=== PATIENT | male | born 1990 | race African-American/Black ===

== ENCOUNTER 2018-05-01 20:47 | Emergency (ER) | payer SELFPAY ==
[~2018-05-01] VITALS: Ht 177.8 cm; Wt 59.0 kg
[2018-05-01 20:50] VITALS: BP 134/73
--- NOTE | 2018-05-01 21:05 | Emergency Room Report ---
History of Present Illness General Chief Complaint: Substance Abuse Source: Patient Present Illness HPI Patient is a 27-year-old male brought in by EMS after reported smoking marijuana and using crystal meth. Patient states that he had been using this earlier in the day. He denies any current suicidal thoughts. He states that he had been staying at a nursing home. The patient denies any current chest pain or shortness of breath. Allergies: Coded Allergies: No Known Allergies (Unverified , 05/01/18) Patient History Past Medical History: see triage record Reviewed Nursing Documentation: PMH: Agreed; PSxH: Agreed Nursing Documentation-PMH History Of Psychiatric Problem: Yes Review of Systems All Other Systems: negative except mentioned in HPI Physical Exam Vital Signs Date Time Temp Pulse Resp B/P (MAP) Pulse Ox O2 Delivery O2 Flow Rate FiO2 05/01/18 20:43 98.3 100 17 134/73 100 Room Air 98.2 Sp02 EP Interpretation: reviewed, normal General Appearance: alert/responsive, no apparent distress, GCS 15, non-toxic Head: atraumatic Eyes: PERRL, EOMI, lids + conjunctiva normal ENT: normal ENT inspection, TMs + canals normal, hearing intact, no angioedema Neck: supple/symm/no masses, no meningismus Respiratory: effort normal, no wheezing, chest symmetrical Cardiovascular: regular rate, rhythm, no edema Cardiovascular #2: 2+ carotid (R), 2+ carotid (L), 2+ dorsalis pedis (R), 2+ dorsalis pedis (L) Gastrointestinal: non-tender, no mass, non-distended, no rebound/guarding, normal bowel sounds Musculoskeletal: gait & station normal, strength & tone normal, normal ROM, non -tender Neurologic: normal inspection, CN II-XII intact, oriented x3, sensory intact, normal speech Psychiatric: other - flat affect Skin: no rash, well hydrated Lymphatic: normal inspection Medical Decision Making Diagnostic Impression: Primary Impression: Substance abuse ER Course The patient presented for agitation. Differential diagnosis included was not limited to psychosis, substance abuse, alcohol intoxication among others. Patient has a benign exam and does not appear to require any further imaging or laboratory testing at this time. The patient admits to using methamphetamine as well as marijuana. The patient denies any suicidal thoughts. The patient does not appear to be any danger to himself. The patient was observed in the emergency department. Patient does not appear to be responding to internal stimuli. Patient subsequently eloped without notifying staff. Labs Test 05/01/18 21:00 Urine Opiates Screen Negative (NEGATIVE) Urine Barbiturates Screen Negative (NEGATIVE) Phencyclidine (PCP) Screen Negative (NEGATIVE) Urine Amphetamines Screen Negative (NEGATIVE) Urine Benzodiazepines Screen Negative (NEGATIVE) Urine Cocaine Screen Negative (NEGATIVE) Urine Marijuana (THC) Screen Negative (NEGATIVE) Last Vital Signs Date Time Temp Pulse Resp B/P (MAP) Pulse Ox O2 Delivery O2 Flow Rate FiO2 05/01/18 20:43 98.3 100 17 134/73 100 Room Air 98.2 Status: improved Disposition: ELOPED Condition: Stable Mckay Mtz MD May 01, 2018 21:05
[2018-05-01] MEDS ORDERED: DiphenhydrAMINE 50mg/ml Inj IM ONE (21:30)
[2018-05-01] MEDS ORDERED: LORazepam Inj 2mg/ml 1ml IM ONE (21:30)
[2018-05-01] MEDS ORDERED: Haloperidol 5mg/ml Inj IM ONE (21:30)
[2018-05-01 22:30] VITALS: BP 134/73
== END 2018-05-01 22:31 | disposition home or self-care (01) ==
LOC: EDBD 20:47 → EMR 21:42
DX: F15.10 Other stimulant abuse, uncomplicated (principal); F12.10 Cannabis abuse, uncomplicated; F17.200 Nicotine dependence, unspecified, uncomplicated; F99 Mental disorder, not otherwise specified
CPT/HCPCS: 80307; 96372; 99283; J1200; J1630